=== PATIENT | female | born 2000 | race Caucasian/White ===

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

== ENCOUNTER 2023-04-14 01:19 | Inpatient (IN) ==
[2023-04-14] MEDS ORDERED: LACTATED RINGER'S 1,000 ML IV PRN (01:24)
--- NOTE | 2023-04-14 01:29 | History & Physical Report ---
Date of Service April 14, 2023 Assessment & Plan (1) Encounter for supervision of normal in multigravida: Plan: Admit to L&D. EFM/toco. Labs. Anticipate . She'd like epidural if there is time. History of Present Illness Chief Complaint: labor Primary Care Provider: ANGELA PCP 22yo @ 37 02/27, came to L&D with contractions. Had started annette about 1.5h ago. No leaking fluid. No vaginal bleeding. + movement. Patient's 2nd child a few months after in his sleep *new FOB *pt states was cardiac arrest Currently every day vaping *enc to quit Social Service Consult @ delivery LGA at anatomy US 92% -Growth US at 36wks --efw 75%, AC 91% Allergies Allergy/AdvReac Type Severity Reaction Status Date / Time No Known Allergies Allergy Verified 04/08/23 13:12 Home Medications Medication Instructions Recorded Confirmed Type vit no.95-ferrous 01/23/18 04/08/23 History fumarate 28 mg-folic acid 800 mcg tablet () RSV vac, preF A and preF B(PF) 120 0.5 ml IM ONCE #1 ea 03/18/23 04/08/23 Rx mcg/0.5 mL IM solution (Abrysvo) Patient History Medical History Varicella vaccination Surgical History No history of previous surgery Family History (Updated 09/10/22 @ 15:17 by Gretel Rousseau) Grandmother (Paternal) Breast cancer Aunt Diabetes Mother COPD (chronic obstructive pulmonary disease) Denies family history of Ovarian cancer Colorectal cancer Social History (Updated 09/10/22 @ 15:19 by Gretel Rousseau) Smoking Status: Current every day smoker Tobacco Type: E-cigarettes / Vaping Second Hand Exposure: No; Do You Dip or Chew Tobacco: No; Hx Alcohol Use: No Hx Substance Use: No Preferred Language: Slovak Communication Ability: Effective Practice Performance Manager Required: No Beliefs That Will Affect Care: None marital status: Single marital status details: sangeetha Mtz Jaqui (25) [phone] Current Living Situation: Significant Other Current Living Situation Comment: lives with Fob, mother, son, sister, step dad, dogs current occupational status: employed current occupation: [employer] Feels Safe at Home: Yes Assistive Devices: None Review of Systems All systems reviewed & are unremarkable except as noted in HPI & below Physical Exam Physical Exam: FHT Cat 1 [place] Q 2 SVE 8/100/+1 Constitutional: WD/WN, vitals as above Respiratory: normal respiratory effort, lungs clear to auscultation no respiratory distress Cardiovascular: Rate/Rhythm: regular rate and regular rhythm Gastrointestinal (Abdomen): Inspection/Auscultation: abdomen normal to inspection Percussion/Palpation: abdomen soft; abdomen nontender Gravid. No s/s chorio or abruption. Skin: no rashes, warm and dry Psychiatric: A+Ox3, euthymic affect Coding Level of Care Code None Diagnoses Encounter for supervision of normal in multigravida Z34.80
[2023-04-14] MEDS: KETOROLAC 30 MG/ML VIAL ONE (01:45)
[2023-04-14] MEDS: OXYTOCIN 30 UNITS/NSS 30 UNITS/500 ML BAG IV PRN (01:45)
--- NOTE | 2023-04-14 01:51 | Delivery Summary ---
Vaginal Delivery Summary Date of Service April 14, 2023 Vaginal Delivery Summary [facility] Vaginal Delivery Summary: Pre-delivery diagnoses: 22yo @ 37 02/27, spontaneous labor, suspected LGA, daily vaping Post-delivery diagnoses: same Procedure: spontaneous vaginal delivery Surgeon: Genna Mi DO Complications: none Findings: Viable female . Apgars: 8/9. Weight pending, please see nursery records. Estimated blood loss: 300ml Description of delivery: The patient progressed to complete without anesthesia. She then began to push. She spontaneously vaginally delivered a viable from the cephalic presentation. The head delivered in IVELISSE position. The anterior shoulder delivered, followed by the posterior shoulder, followed by the body. No nuchal. The baby was placed on mother's abdomen and a spontaneous cry was heard. Delayed cord clamping was employed, and the cord was doubly clamped and cut. A segment was retained for cord gases. Cord blood was obtained. The placenta was delivered spontaneously intact with a 3-vessel cord. The uterus and vagina were swept of clots and debris. IV pitocin was given. The uterus became firm. The cervix, vagina, and perineum were inspected and no lacerations were noted. Excellent hemostasis was observed. The mother and baby are recovering in stable and good condition in the room. Sponge and instrument counts were correct x 2. Genna Mi DO [facility] Vaginal Delivery Charge Vaginal Delivery Codes: 27095 global code for the antepartum, delivery, and post- Delivery Type Details: [facility]
[2023-04-14 01:57] LABS: Base Excess Cord Venous Blood -1.6 mEq/L (-7.7-1.9); Cord Venous Blood HCO3 22 mmol/L (18.4-26.8); Cord Venous Blood PCO2 32 mmHg (30.4-57.2); Cord Venous Blood PO2 37 mmHg (14.1-43.3); Cord Venous Blood pH 7.44 (7.20-7.44); O2 Saturation Cord Venous Bld 79.6 % (<68)
[2023-04-14 02:32] LABS: Hematocrit (blood only) 33.1 % (37.0-47.0); Hemoglobin 10.9 g/dl (12.0-16.0); Mean Corpuscular Hemoglobin 27.9 pg (25.0-34.0); Mean Corpuscular Hgb Conc 32.9 g/dL (32.0-36.0); Mean Corpuscular Volume 84.7 fL (80.0-100.0); Mean Platelet Volume 10.1 fL (9.4-12.4); Platelet Count 210 K/uL (130-400); RDW Coefficient of Variation 12.8 % (11.5-14.5); RDW Standard Deviation 38.2 fL (36.4-46.3); Red Blood Count 3.91 M/uL (4.20-5.40); White Blood Count 5.46 K/ul (4.8-10.8)
[2023-04-14] MEDS: LIDOCAINE 1% LOCAL 20 ML VIAL INFIL PRN (02:34)
[2023-04-14] MEDS ORDERED: OXYTOCIN 30 UNITS/NSS 30 UNITS/500 ML BAG IV PRN (03:11)
[2023-04-14] MEDS ORDERED: oxyCODONE/ACETAMINOPHEN 5mg/325mg TAB PO PRN (03:11)
[2023-04-14] MEDS ORDERED: BENZOCAINE 20% SPRY 85 APPLN/85 GM CAN EXT PRN (03:11)
[2023-04-14] MEDS ORDERED: HYDROCORTISONE ACETATE 25 MG SUPP PR PRN (03:11)
[2023-04-14] MEDS ORDERED: ACETAMINOPHEN 325 MG TAB PO PRN (03:11)
[2023-04-14 03:38] LABS: Base Excess Cord Arterial Bld -2.6 mEq/L (-9-1.8); CO2 Cord Arterial Blood 46 mmHg (39.1-73.5); HCO3 Cord Arterial Blood 24 mmol/L (19.7-28.5); Oxygen Sat Cord Arterial Blood < 60.0 % (<60); PO2 Cord Arterial Blood 22 mmHg (4.1-31.7); pH Cord Arterial Blood 7.32 (7.1-7.38)
[2023-04-14 04:51] LABS: Amphetamines+Metham, Urine Neg (Neg); Barbiturates, Urine Neg (Neg); Benzodiazepine, Urine Neg (Neg); Cocaine, Urine Neg (Neg); MDMA (Ecstacy), Urine Neg (Neg); Marijuana, Urine Neg (Neg); Methadone, Urine Neg (Neg); Opiate, Urine Neg (Neg); Phencyclidine, Urine Neg (Neg)
[2023-04-14] MEDS: PRENATAL VITAMIN 1 TAB PO SCH (07:39)
[2023-04-14] MEDS: DOCUSATE SODIUM 100 MG CAP PO SCH (07:39)
[2023-04-14] MEDS: IBUPROFEN 600 MG TAB PO PRN (07:39)
[2023-04-14] MEDS: DIPHTHER/TETAN/PERTUS Vaccine (Tdap, Adol/Adult) 0.5mL IM ONE (15:15)
--- NOTE | 2023-04-15 06:49 | Obstetrical Progress Note ---
Date of Service April 15, 2023 Assessment & Plan (1) care and examination: Plan: Doing well today Cleared by CYS to go home to mother's house with baby. Not to be alone with baby, FOB or pt mother must be present at all times Encourage ambulation Pain control Dc today Admission and Anticipated Discharge Date Admission Date: April 14, 2023 Supervising Physician Co-Signing Physician Notes Resident Physician Supervision Note: I interviewed and examined the patient. Discussed with Dr. Garg and agree with findings and plan as documented in the note. Any exceptions or clarifications are listed here: [None] Documented By: Sherrie Magaña MD, FACOG Subjective 22 yo post day 1 s/p Ambulation: ambulating normally Voiding: no voiding problems Passing Gas:: Yes Diet Tolerance:: regular diet Lochia:: Small Feeding Type:: bottle feeding Current Pain Level: minimal Resting comfortably this AM in NAD. Denies SUN, CP, SOB, N/V/D, LE pain/swelling. Desires dc today Review of Systems Review of Systems: reviewed, per HPI Physical Exam Physical Exam: General: patient resting comfortably, NAD, non-toxic in appearance, answers questions appropriately. Skin: warm, dry, intact HEENT: NC/AT, anicteric sclera, conjunctiva without injection, moist mucus membranes. Heart: +S1/S2, regular, no m/r/g Lungs: equal air entry bilaterally, no rales/rhonchi/wheezes Abd: +BS, soft, NT/ND, uterine fundus firm at umbilicus Ext: warm, no clubbing/cyanosis or edema, Sean's neg. Neuro: nonfocal, speech intact, no facial droop, moving all extremities on command. Results & Data Vital Signs (Past 12 Hours) Vital Signs Temp Pulse Resp BP Pulse Ox O2 Del Method 04/14/23 23:48 36.7 C 80 20 99/65 L 99 Room Air 04/14/23 20:30 Room Air 04/14/23 20:30 36.9 C 76 18 101/65 98 Room Air Resident Activity Tracking Resident Involvement: Resident Care Provided Care Provided: Adult Hospital Medicine
[2023-04-15 07:35] LABS: Hematocrit (blood only) 31.1 % (37.0-47.0); Hemoglobin 10.3 g/dl (12.0-16.0)
[2023-04-15] MEDS ORDERED: bisacodyL 5 MG TABEC PO SCH (20:00)
[2023-04-16] MEDS ORDERED: bisacodyL 10 MG SUPP PR PRN
== END 2023-04-15 11:40 | disposition home or self-care (01) | DRG 807 ==
LOC: OPB 01:19 → 4S1 01:23 → 4E2 06:30